=== PATIENT | female | born 1975 ===

== ENCOUNTER 2023-05-24 13:38 | Outpatient (RCR) | payer BC, SELFPAY ==
[2023-05-24 13:50] VITALS: BP 119/72
[2023-05-24] MEDS: NSS 250 IV (14:11)
[2023-05-24] MEDS: TYSABRI 115 MG IV (14:11)
[2023-05-24 16:10] VITALS: BP 100/72
== END 2023-05-25 10:07 | disposition home or self-care (01) ==
LOC: OID 13:38
PROVIDERS: ATTENDING PHYSICIAN Psychiatry & Neurology Neurology; FAMILY PHYSICIAN Internal Medicine
DX: G35 Multiple sclerosis (principal)
CPT/HCPCS: 96361; 96365; J2323

== ENCOUNTER 2023-06-22 09:17 | Outpatient (RCR) | payer BC, SELFPAY ==
[2023-06-22] MEDS: NSS 250 IV (09:41)
[2023-06-22] MEDS: TYSABRI 115 MG IV (09:41)
[2023-06-22 09:45] VITALS: BP 119/82
== END 2023-06-25 08:33 | disposition home or self-care (01) ==
LOC: OID 09:17
PROVIDERS: ATTENDING PHYSICIAN Psychiatry & Neurology Neurology; FAMILY PHYSICIAN Internal Medicine
DX: G35 Multiple sclerosis (principal)
CPT/HCPCS: 96361; 96365; J2323

== ENCOUNTER 2023-07-27 13:02 | Outpatient (RCR) | payer BC, SELFPAY ==
[2023-07-27] MEDS: TYSABRI 115 MG IV (13:38)
[2023-07-27] MEDS: NSS 250 IV (13:39)
[2023-07-27 14:10] VITALS: BP 116/78
== END 2023-07-30 09:30 | disposition home or self-care (01) ==
LOC: OID 13:02
PROVIDERS: ATTENDING PHYSICIAN Psychiatry & Neurology Neurology; FAMILY PHYSICIAN Internal Medicine
DX: G35 Multiple sclerosis (principal)
CPT/HCPCS: 96365; J2323

== ENCOUNTER 2023-08-24 13:01 | Outpatient (RCR) | payer BC, SELFPAY ==
[2023-08-24 13:05] VITALS: BP 118/84
[2023-08-24] MEDS: NSS 250 IV (13:16)
[2023-08-24] MEDS: TYSABRI 115 MG IV (13:16)
== END 2023-09-14 23:59 | disposition home or self-care (01) ==
LOC: OID 13:01
PROVIDERS: ATTENDING PHYSICIAN Psychiatry & Neurology Neurology; FAMILY PHYSICIAN Internal Medicine
DX: G35 Multiple sclerosis (principal)
CPT/HCPCS: 96365; J2323

== ENCOUNTER 2023-09-21 13:03 | Outpatient (RCR) | payer BC, SELFPAY ==
[2023-09-21 13:20] VITALS: BP 119/72
[2023-09-21] MEDS: NSS 250 IV (13:28)
[2023-09-21] MEDS: TYSABRI 115 MG IV (13:28)
== END 2023-09-24 08:40 | disposition home or self-care (01) ==
LOC: OID 13:03
PROVIDERS: ATTENDING PHYSICIAN Psychiatry & Neurology Neurology; FAMILY PHYSICIAN Internal Medicine
DX: G35 Multiple sclerosis (principal)
CPT/HCPCS: 96365; J2323

== ENCOUNTER 2023-11-14 13:43 | Outpatient (RCR) | payer BC, SELFPAY ==
[2023-10-17 13:54] VITALS: BP 115/44
[2023-10-17] MEDS: NSS 250 IV (14:09)
[2023-10-17] MEDS: TYSABRI 115 MG IV (14:10)
[2023-11-14 13:52] VITALS: BP 100/78
[2023-11-14] MEDS: NSS 250 IV (14:09)
[2023-11-14] MEDS: TYSABRI 115 MG IV (14:11)
[2023-11-14 15:59] VITALS: BP 107/70
== END 2023-11-14 23:59 | disposition home or self-care (01) ==
LOC: OID 13:43
PROVIDERS: ATTENDING PHYSICIAN Psychiatry & Neurology Neurology; FAMILY PHYSICIAN Internal Medicine
DX: G35 Multiple sclerosis (principal)
CPT/HCPCS: 96361; 96365; J2323

== ENCOUNTER 2024-01-28 10:45 | Outpatient (RCR) | payer OTHER, SELFPAY ==
[2024-01-28 11:20] VITALS: BP 104/66
[2024-01-28] MEDS: NSS 250 IV (11:31)
[2024-01-28] MEDS: TYSABRI 115 MG IV (11:35)
[2024-01-28 11:50] VITALS: BP 105/72
[2024-01-28 12:00] VITALS: BP 115/82
[2024-01-28 12:30] VITALS: BP 99/65
[2024-01-28 13:00] VITALS: BP 95/62
== END 2024-01-29 09:47 | disposition home or self-care (01) ==
LOC: OID 10:45
PROVIDERS: ATTENDING PHYSICIAN Psychiatry & Neurology Neurology; FAMILY PHYSICIAN Internal Medicine
DX: G35 Multiple sclerosis (principal)
CPT/HCPCS: 96361; 96365; J2323

== ENCOUNTER 2024-02-25 10:31 | Outpatient (RCR) | payer OTHER, SELFPAY ==
[2024-02-25 10:50] VITALS: BP 115/87
[2024-02-25 11:15] VITALS: BP 123/88
[2024-02-25] MEDS: NSS 250 IV (11:16)
[2024-02-25] MEDS: TYSABRI 115 MG IV (11:16)
[2024-02-25 11:45] VITALS: BP 123/81
[2024-02-25 12:45] VITALS: BP 113/76; BP 114/72
[2024-02-25 13:15] VITALS: BP 113/76
== END 2024-02-26 09:43 | disposition home or self-care (01) ==
LOC: OID 10:31
PROVIDERS: ATTENDING PHYSICIAN Psychiatry & Neurology Neurology; FAMILY PHYSICIAN Internal Medicine
DX: G35 Multiple sclerosis (principal); R90.89 Other abnormal findings on diagnostic imaging of central nervous system; R79.0 Abnormal level of blood mineral; E55.9 Vitamin D deficiency, unspecified; E53.8 Deficiency of other specified B group vitamins; R42 Dizziness and giddiness
CPT/HCPCS: 96361; 96365; J2323

== ENCOUNTER 2024-03-28 13:14 | Outpatient (RCR) | payer OTHER, SELFPAY ==
[2024-03-28 13:25] VITALS: BP 111/78
[2024-03-28] MEDS: NSS 250 IV (13:36)
[2024-03-28] MEDS: TYSABRI 115 MG IV (13:37)
[2024-03-28 14:54] VITALS: BP 111/75
== END 2024-03-31 10:16 | disposition home or self-care (01) ==
LOC: OID 13:14
PROVIDERS: ATTENDING PHYSICIAN Psychiatry & Neurology Neurology; FAMILY PHYSICIAN Internal Medicine
DX: G35 Multiple sclerosis (principal)
CPT/HCPCS: 96365; J2323

== ENCOUNTER 2024-04-25 13:54 | Outpatient (RCR) | payer BC, SELFPAY ==
[2024-04-25] MEDS: NSS 250 IV (14:19)
[2024-04-25] MEDS: TYSABRI 115 MG IV (14:20)
[2024-04-25 14:38] VITALS: BP 108/78
== END 2024-04-28 08:11 | disposition home or self-care (01) ==
LOC: OID 13:54
PROVIDERS: ATTENDING PHYSICIAN Psychiatry & Neurology Neurology; FAMILY PHYSICIAN Internal Medicine
DX: G35 Multiple sclerosis (principal)
CPT/HCPCS: 96361; 96365; J2323

== ENCOUNTER 2024-05-22 13:48 | Outpatient (RCR) | payer BC, SELFPAY ==
[2024-05-22 14:00] VITALS: BP 112/75
[2024-05-22] MEDS: NSS 250 IV (14:09)
[2024-05-22] MEDS: TYSABRI 115 MG IV (14:09)
== END 2024-05-23 10:11 | disposition home or self-care (01) ==
LOC: OID 13:48
PROVIDERS: ATTENDING PHYSICIAN Psychiatry & Neurology Neurology; FAMILY PHYSICIAN Internal Medicine
DX: G35 Multiple sclerosis (principal)
CPT/HCPCS: 96365; J2323

== ENCOUNTER 2024-06-23 13:29 | Outpatient (RCR) | payer BC, SELFPAY ==
[2024-06-23] MEDS: NSS 250 IV (13:57)
[2024-06-23] MEDS: TYSABRI 115 MG IV (13:58)
[2024-06-23 14:03] VITALS: BP 120/72
[2024-06-23 15:50] VITALS: BP 124/77
== END 2024-06-24 11:17 | disposition home or self-care (01) ==
LOC: OID 13:29
PROVIDERS: ATTENDING PHYSICIAN Psychiatry & Neurology Neurology; FAMILY PHYSICIAN Internal Medicine
DX: G35 Multiple sclerosis (principal)
CPT/HCPCS: 96365; J2323

== ENCOUNTER → 2024-07-28 09:43 | Outpatient (REF) | payer BC, SELFPAY | LOC: MRI 3T 09:43 | PROVIDERS: ATTENDING PHYSICIAN Psychiatry & Neurology Neurology; FAMILY PHYSICIAN Internal Medicine | DX: R90.89 Other abnormal findings on diagnostic imaging of central nervous system (principal) | CPT/HCPCS: 70553; 72156; A9575 ==

== ENCOUNTER → 2024-07-30 07:39 | Outpatient (REF) | payer BC, SELFPAY | LOC: MRI 3T 07:39 | PROVIDERS: ATTENDING PHYSICIAN Psychiatry & Neurology Neurology; FAMILY PHYSICIAN Internal Medicine | DX: R90.89 Other abnormal findings on diagnostic imaging of central nervous system (principal) | CPT/HCPCS: 72157; A9575 ==

== ENCOUNTER 2024-08-04 11:42 | Outpatient (RCR) | payer BC, SELFPAY ==
[2024-08-04 11:50] VITALS: BP 120/80
[2024-08-04] MEDS: TYSABRI 115 MG IV (12:00)
[2024-08-04] MEDS: NSS 250 IV (12:00)
== END 2024-08-05 08:06 | disposition home or self-care (01) ==
LOC: OID 11:42
PROVIDERS: ATTENDING PHYSICIAN Psychiatry & Neurology Neurology; FAMILY PHYSICIAN Internal Medicine
DX: G35 Multiple sclerosis (principal)
CPT/HCPCS: 96361; 96365; J2323

== ENCOUNTER 2024-09-10 16:05 | Outpatient (RCR) | payer BC, SELFPAY ==
[2024-09-10 14:30] VITALS: BP 121/76
[2024-09-10] MEDS: TYSABRI 115 MG IV (14:45)
[2024-09-10] MEDS: NSS 250 IV (14:45)
--- NOTE | 2024-09-10 16:37 | DOWNTIME ---
There was a Fullscreen Client Case Advocate Downtime on 09/10/2024 from 1230 to 09/10/2024 at 1550. Downtime documentation of patient's care, including medication administrations, has been reconciled in the electronic record per guidelines. Refer to the
patient's paper chart under the miscellaneous tab to see printed paper medication records and downtime forms.
== END 2024-09-11 11:09 | disposition home or self-care (01) ==
LOC: OID 16:05
PROVIDERS: ATTENDING PHYSICIAN Psychiatry & Neurology Neurology; FAMILY PHYSICIAN Internal Medicine
DX: G35 Multiple sclerosis (principal)
CPT/HCPCS: 96361; 96365; J2323

== ENCOUNTER 2024-10-20 13:35 | Outpatient (RCR) | payer BC, SELFPAY ==
[2024-10-20 13:40] VITALS: BP 106/77
[2024-10-20] MEDS: NSS 250 IV (13:52)
[2024-10-20] MEDS: TYSABRI 115 MG IV (13:52)
[2024-10-20 14:59] VITALS: BP 109/69
== END 2024-10-21 11:24 | disposition home or self-care (01) ==
LOC: OID 13:35
PROVIDERS: ATTENDING PHYSICIAN Psychiatry & Neurology Neurology; FAMILY PHYSICIAN Internal Medicine
DX: G35 Multiple sclerosis (principal)
CPT/HCPCS: 96360; 96361; 96365; J2323

== ENCOUNTER 2024-11-27 12:56 | Outpatient (RCR) | payer BC, SELFPAY ==
[2024-11-27 13:00] VITALS: BP 131/93
[2024-11-27] MEDS: TYSABRI 115 MG IV (13:24)
[2024-11-27 14:56] VITALS: BP 102/64
== END 2024-11-28 09:07 | disposition home or self-care (01) ==
LOC: OID 12:56
PROVIDERS: ATTENDING PHYSICIAN Psychiatry & Neurology Neurology; FAMILY PHYSICIAN Internal Medicine
DX: G35 Multiple sclerosis (principal)
CPT/HCPCS: 96365; J2323

== ENCOUNTER 2024-12-30 11:20 | Outpatient (RCR) | payer BC, SELFPAY ==
[2024-12-30 11:35] VITALS: BP 119/80
[2024-12-30] MEDS: TYSABRI 115 MG IV (11:50)
[2024-12-30 12:00] VITALS: BP 111/77
[2024-12-30 12:30] VITALS: BP 116/79
[2024-12-30 13:00] VITALS: BP 114/78
[2024-12-30 13:35] VITALS: BP 114/79
== END 2024-12-31 08:47 | disposition home or self-care (01) ==
LOC: OID 11:20
PROVIDERS: ATTENDING PHYSICIAN Psychiatry & Neurology Neurology; FAMILY PHYSICIAN Internal Medicine
DX: G35 Multiple sclerosis (principal)
CPT/HCPCS: 96365; J2323

== ENCOUNTER 2025-01-27 11:36 | Outpatient (RCR) | payer BC, SELFPAY ==
[2025-01-27 11:45] VITALS: BP 111/80
[2025-01-27] MEDS: TYSABRI 115 MG IV (12:06)
[2025-01-27 12:15] VITALS: BP 124/90
[2025-01-27 12:30] VITALS: BP 124/90
[2025-01-27 13:00] VITALS: BP 110/72
[2025-01-27 13:30] VITALS: BP 110/76
== END 2025-01-28 09:19 | disposition home or self-care (01) ==
LOC: OID 11:36
PROVIDERS: ATTENDING PHYSICIAN Psychiatry & Neurology Neurology; FAMILY PHYSICIAN Internal Medicine
DX: G35.D Multiple sclerosis, unspecified (principal)
CPT/HCPCS: 96365; J2323

== ENCOUNTER 2025-04-13 13:14 | Outpatient (RCR) | payer BC, SELFPAY ==
[2025-03-16 11:50] VITALS: BP 117/67
[2025-03-16] MEDS: TYSABRI 115 MG IV (12:08)
[2025-04-13 13:15] VITALS: BP 118/86
[2025-04-13] MEDS: TYSABRI 115 MG IV (13:30)
[2025-04-13 14:32] VITALS: BP 114/72
== END 2025-04-15 23:59 | disposition home or self-care (01) ==
LOC: OID 13:14
PROVIDERS: ATTENDING PHYSICIAN Psychiatry & Neurology Neurology; FAMILY PHYSICIAN Internal Medicine
DX: G35 Multiple sclerosis (principal); G35.B0 Primary progressive multiple sclerosis, unspecified (principal)
CPT/HCPCS: 96365; J2323